=== PATIENT | female | born 1990 | race Hispanic/Latino ===

== ENCOUNTER 2022-04-09 15:11 | Day surgery (SDC) | payer SELFPAY ==
[2022-04-09] MEDS ORDERED: Midazolam HCl 2 mg/2 ml Vial ONE (15:21)
[2022-04-09] MEDS ORDERED: FENTANYL 50 MCG/ML 1 ML VIAL ONE (15:21)
[2022-04-09] MEDS ORDERED: Scopolamine 1.5 mg/72 hour Patch ONE (15:21)
[2022-04-09] MEDS ORDERED: Famotidine/PF 20 mg/2ml Vial ONE (15:21)
[2022-04-09] MEDS ORDERED: Fentanyl 250 MCG/5 ML VIAL ONE (16:43)
[2022-04-09] MEDS ORDERED: SUGAMMADEX SODIUM 200 MG/2 ML VIAL ONE (16:43)
[2022-04-09] MEDS ORDERED: Bupivacaine/Epinephrine 0.25% 30 ML VIAL ONE (16:49)
[2022-04-09] MEDS ORDERED: Dexamethasone 20 MG/5 ML VIAL ONE (17:09)
[2022-04-09] MEDS ORDERED: Ondansetron PF 4 MG/2 ML Vial ONE (17:09)
[2022-04-09] MEDS ORDERED: GLYCOPYRROLATE/PF 0.2 MG/ML VIAL ONE (17:09)
[2022-04-09] MEDS ORDERED: PROPOFOL 200 MG/20 ML VIAL ONE (17:09)
[2022-04-09] MEDS ORDERED: Rocuronium Bromide 10 MG/ML (10ML VIAL) ONE (17:09)
[2022-04-09] MEDS ORDERED: NEOSTIGMINE 3 MG/3 ML SYR 3 MG/3 ML SYRINGE ONE (17:09)
[2022-04-09] MEDS ORDERED: Glycopyrrolate 0.2 MG/ML 5 ML SYRINGE ONE (17:09)
[2022-04-09] MEDS ORDERED: HYDROcodone/Acetaminophen 5/325 mg Tablet ONE (18:34)
== END 2022-04-09 19:05 | disposition home or self-care (01) ==
LOC: SDC 15:11
PROVIDERS: ATTEND Surgery
PROC: 0DTJ4ZZ Resection of Appendix, Percutaneous Endoscopic Approach (ICD-10-PCS; principal; 2022-04-09)
DX: K35.80 Unspecified acute appendicitis (principal); Z88.0 Allergy status to penicillin
CPT/HCPCS: 88304; A4649; C1776; J1100; J2250; J2405; J2704; J3010; J3490; S0028